=== PATIENT | female | born 1985 | race Caucasian/White ===

== ENCOUNTER 2017-11-24 20:02 | Emergency (ER) | payer SELFPAY ==
[2017-11-24] MEDS ORDERED: NA CHLORIDE 0.9% 1,000 ML ONE (21:26)
[2017-11-24 21:36] LABS: Absolute Neutrophil 9.5 K/uL (1.8-8.0); Basophils % 0.7 % (0-1.3); Eosinophils % 2.2 % (0-4.4); Hematocrit 38.2 % (36.0-45.0); Lymphocytes % 21.7 % (15.3-44.8); MCH 30.2 pg (27.0-35.0); MCV 91.2 fL (80-100); MPV 8.7 fL (7.6-11.3); Monocytes % 6.9 % (3.3-12.3); RBC Red Blood Cell Count 4.18 M/uL (3.86-4.86)
[2017-11-24 21:48] LABS: Urine Blood 1+ (NEG); Urine Glucose NEGATIVE (NEG); Urine Protein NEGATIVE (NEG)
[2017-11-24 21:50] LABS: Bicarbonate 24 mEq/L (21-31); Glucose Level 89 mg/dL (65-120); Potassium 3.4 mEq/L (3.6-5.0); Sodium Level 140 mEq/L (135-145)
[2017-11-24 21:57] LABS: BUN Blood Urea Nitrogen 16 mg/dL (6-20); Glomerular Filtration Rate > 90 mL/min (=/>90); Valproic Acid (Depakene) Level 19.4 ug/ml (50-100)
[2017-11-24 22:17] LABS: Urine Bacteria >50 /HPF (<20); Urine Culture Reflex Order REFLEXED
--- NOTE | 2017-11-24 22:20 | EDPHYS ---
Physician Documentation [facility] Name: Dimple Woodward Age: 32 yrs Sex: Female : 1985 Arrival Date: 11/24/2017 Time: 20:21 Bed 25 Private MD: ED Physician Tru Jaquez HPI: 11/24 22:16 This 32 yrs old Female presents to ER via EMS with complaints of Seizure. gs 22:16 The patient presents after having a single isolated seizure. Character of seizure(s): gs Motor activity: generalized. Seizure onset: just prior to arrival. Context: the seizure(s) was witnessed, by family, occurred at home. Seizure Hx: Last seizure: The patient's last seizure was approximately 2 week(s) ago. Associated injury: The patient did not suffer any apparent associated injury. The patient has experienced similar episodes in the past, a few times. 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 - Social history:: Smoking status: Patient/guardian denies using tobacco, but has a distant history of tobacco abuse. ROS: 22:16 All other systems are negative. gs Exam: 22:16 Head/Face: Normocephalic, atraumatic. Eyes: Pupils equal round and reactive to light, gs extra-ocular motions intact. Lids and lashes normal. Conjunctiva and sclera are non-icteric and not injected. Cornea within normal limits. Periorbital areas with no swelling, redness, or edema. ENT: Nares patent. No nasal discharge, no septal abnormalities noted. Tympanic membranes are normal and external auditory canals are clear. Oropharynx with no redness, swelling, or masses, exudates, or evidence of obstruction, uvula midline. Mucous membranes moist. Neck: Trachea midline, no thyromegaly or masses palpated, and no cervical lymphadenopathy. Supple, full range of motion without nuchal rigidity, or vertebral point tenderness. No Meningismus. Chest/axilla: Normal chest wall appearance and motion. Nontender with no deformity. No lesions are appreciated. Cardiovascular: Regular rate and rhythm with a normal S1 and S2. No gallops, murmurs, or rubs. Normal PMI, no JVD. No pulse deficits. Respiratory: Lungs have equal breath sounds bilaterally, clear to auscultation and percussion. No rales, rhonchi or wheezes noted. No increased work of breathing, no retractions or nasal flaring. Abdomen/GI: Soft, non-tender, with normal bowel sounds. No distension or tympany. No guarding or rebound. No evidence of tenderness throughout. Back: No spinal tenderness. No costovertebral tenderness. Full range of motion. Skin: Warm, dry with normal turgor. Normal color with no rashes, no lesions, and no evidence of cellulitis. MS/ Extremity: Pulses equal, no cyanosis. Neurovascular intact. Full, normal range of motion. Neuro: Awake and alert, GCS 15, oriented to person, place, time, and situation. Cranial nerves II-XII grossly intact. Motor strength 5/5 in all extremities. Sensory grossly intact. Cerebellar exam normal. Normal gait. 22:16 Constitutional: The patient appears alert, awake. Vital Signs: 20:14 BP 96 / 74; Pulse 96; Resp 18; Pulse Ox 100% on R/A; dh3 20:24 BP 96 / 74; Pulse 105; Resp 15; Pulse Ox 99% on R/A; kr2 21:23 BP 95 / 60; Pulse 77; Resp 22; Pulse Ox 100% on R/A; dh3 22:46 BP 102 / 58; Pulse 78; Resp 16; Pulse Ox 99% on R/A; kr2 MDM: 20:31 Patient medically screened. 22:16 Differential diagnosis: seizure, sub therapeutic vpa level. Data reviewed: vital signs, nurses notes. Response to treatment: the patient's symptoms have markedly improved after treatment, and as a result, I will discharge patient. 11/24 20:39 Order name: CBC with Diff 11/24 20:39 Order name: BMP 11/24 20:39 Order name: Depakote 11/24 20:40 Order name: Urine Drug Screen 11/24 21:36 Order name: Urine Microscopic Only dh3 11/24 21:40 Order name: Urine Dipstick--Ancillary (enter results) mt 11/24 21:40 Order name: Urine --Ancillary (enter results) ar 11/24 21:41 Order name: CBC with Automated Diff; Complete Time: 22:11 EDMS 11/24 21:48 Order name: Urine --Ancillary; Complete Time: 22:11 EDMS 11/24 21:48 Order name: Urine Dipstick-Ancillary; Complete Time: 22:11 EDMS 11/24 21:51 Order name: Basic Metabolic Panel; Complete Time: 22:11 EDMS 11/24 21:57 Order name: Valproic Acid (Depakene) Level; Complete Time: 22:11 EDNY 11/24 22:17 Order name: Urine Microscopic Only EDNY 11/24 22:35 Order name: Urine Drug Screen EDMS Administered Medications: 21:00 Drug: NS 0.9% 1000 ml Route: IV; Rate: 1 bolus; Site: right antecubital; kr2 22:22 Follow up: Response: No adverse reaction; IV Status: Completed infusion kr2 22:29 Drug: Depakene 500 mg Route: PO; kr2 22:29 Follow up: Response: Medication administered at discharge. kr2 Disposition: 11/24/17 22:19 Discharged to Home. Impression: Epilepsy and recurrent seizures, Cystitis. - Condition is Stable. - Discharge Instructions: Seizure, Adult, Urinary Tract Infection. - Prescriptions for Macrobid 100 mg Oral Capsule - take 1 capsule by ORAL route every 12 hours for 5 days; 10 capsule. - Medication Reconciliation Form, Thank You Letter, Antibiotic Education, Prescription Opioid Use form. - Follow up: Victor Manuel Rousseau MD; When: 2 - 3 days; Reason: Re-evaluation by your physician. - Notes: increase depakote to 500 tid Signatures: Dispatcher [employer] EDMS Tru Jaquez MD MD gs Reaves, Karey, RN RN kr2
--- NOTE | 2017-11-24 22:20 | ER ---
Nurse's Notes [facility] Name: Dimple Woodward Age: 32 yrs Sex: Female : 1985 Arrival Date: 11/24/2017 Time: 20:21 Bed 25 Private MD: Diagnosis: Epilepsy and recurrent seizures;Cystitis Presentation: 11/24 20:21 Presenting complaint: EMS states: we were called out due to reports of seizures, 2 kr2 seizures witnessed by EMS. Patient does have a history of drug abuse, is 91 days clean and wants to make sure she does not receive narcotics. Blood pressure 118/74, pulse 81, resp 20, O2 99% on room air. Transition of care: patient was not received from another setting of care. Onset of symptoms was November 24, 2017. Care prior to arrival: Medication(s) given: Ativan 2mg IM. 20:21 Method Of Arrival: EMS: [facility] kr2 20:21 Acuity: ROGER 3 kr2 Triage Assessment: 20:21 General: Appears in no apparent distress. comfortable, unkempt, Behavior is calm, kr2 cooperative, appropriate for age. Pain: Denies pain. EENT: Nares are clear Oral mucosa is moist. Neuro: Level of Consciousness is awake, alert, obeys commands, Oriented to person, place, time, situation, Appropriate for age. Cardiovascular: Capillary refill < 3 seconds in bilateral fingers Patient's skin is warm and dry. Respiratory: Airway is patent Respiratory effort is even, unlabored, Respiratory pattern is regular, symmetrical. GI: Abdomen is flat, non-distended. : Urine is clear. Derm: Skin is intact, is healthy with good turgor, Skin is pink, warm \T\ dry. Musculoskeletal: Circulation, motion, and sensation intact. 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 - Social history:: Smoking status: Patient/guardian denies using tobacco, but has a distant history of tobacco abuse. Screenin:30 Abuse screen: Denies threats or abuse. Denies injuries from another. Nutritional kr2 screening: No deficits noted. Tuberculosis screening: No symptoms or risk factors identified. Fall Risk Secondary diagnosis (15 points) seizures. Assessment: 20:30 Reassessment: see triage assessment. kr2 21:30 Reassessment: Patient appears in no apparent distress at this time. Patient and/or kr2 family updated on plan of care and expected duration. Pain level reassessed. Patient is alert, oriented x 3, equal unlabored respirations, skin warm/dry/pink. Patient denies pain at this time. 22:30 Reassessment: No changes from previously documented assessment. kr2 Vital Signs: 20:14 BP 96 / 74; Pulse 96; Resp 18; Pulse Ox 100% on R/A; dh3 20:24 BP 96 / 74; Pulse 105; Resp 15; Pulse Ox 99% on R/A; kr2 21:23 BP 95 / 60; Pulse 77; Resp 22; Pulse Ox 100% on R/A; dh3 22:46 BP 102 / 58; Pulse 78; Resp 16; Pulse Ox 99% on R/A; kr2 ED Course: 20:21 Patient arrived in ED. kr2 20:21 Arm band placed on. kr2 20:22 Tru Jaquez MD is Attending Physician. gs 20:24 Triage completed. kr2 20:45 Inserted saline lock: 22 gauge in right antecubital area, using aseptic technique. kr2 ,using aseptic technique. performed by Myrna Talbot RN Blood collected. 21:36 Urine collected: clean catch specimen, cloudy. dh3 22:04 Elke Worthington, EDGARDO is Primary Nurse. kr2 22:18 Victor Manuel Rousseau MD is Referral Physician. gs 22:37 Patient has correct armband on for positive identification. Bed in low position. Call kr2 light in reach. Side rails up X2. Seizure precautions initiated. school bus monitor on. Pulse ox on. NIBP on. Noise minimized. Warm blanket given. Head of bed elevated. 22:38 No provider procedures requiring assistance completed. IV discontinued, intact, kr2 bleeding controlled, No redness/swelling at site. Pressure dressing applied. Administered Medications: 21:00 Drug: NS 0.9% 1000 ml Route: IV; Rate: 1 bolus; Site: right antecubital; kr2 22:22 Follow up: Response: No adverse reaction; IV Status: Completed infusion kr2 22:29 Drug: Depakene 500 mg Route: PO; kr2 22:29 Follow up: Response: Medication administered at discharge. kr2 Outcome: 22:19 Discharge ordered by . 22:38 Discharged to home via wheelchair, with family. kr2 22:38 Condition: stable 22:38 Discharge instructions given to patient, family, Instructed on discharge instructions, follow up and referral plans. medication usage, Demonstrated understanding of instructions, follow-up care, medications, Prescriptions given X 1. 22:47 Patient left the ED. kr2 Signatures: Scarlet Christianson 3 Tru Jaquez MD MD Elke Worthington, RN RN kr2
[2017-11-24 22:34] LABS: Barbiturates NEGATIVE; Benzodiazepines NEGATIVE; Cocaine NEGATIVE; METHAMPHETAM NEGATIVE; Opiates NEGATIVE; Phencyclidine NEGATIVE; THC Cannibis NEGATIVE
[2017-11-24] MEDS ORDERED: DIVALPROEX DR 250 MG TAB PO ONE (22:43)
== END 2017-11-24 22:47 | disposition home or self-care (01) ==
LOC: ER 20:02
DX: N30.90 Cystitis, unspecified without hematuria (principal); F31.9 Bipolar disorder, unspecified; F41.9 Anxiety disorder, unspecified; Z88.5 Allergy status to narcotic agent
CPT/HCPCS: 36415; 80048; 80164; 80307; 81003; 81015; 81025; 85025; 87086; 87088; 96360; 99284; J7030

== ENCOUNTER 2018-01-10 01:31 | Emergency (ER) | payer SELFPAY ==
[2018-01-10] MEDS ORDERED: CLINDAMYCIN HCL 150 MG CAP ONE (01:48)
[2018-01-10] MEDS ORDERED: IBUPROFEN 400 MG TAB ONE (01:48)
--- NOTE | 2018-01-10 02:01 | ER ---
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 Transition of care: ak1 patient was not received from another setting of care. Onset of symptoms was January 06, 2018. Initial Sepsis Screen: Does the patient meet any 2 criteria? No. Patient's initial sepsis screen is negative. Does the patient have a suspected source of infection? No. Patient's initial sepsis screen is negative. Care prior to arrival: None. 01:44 Method Of Arrival: Ambulatory ak1 01:44 Acuity: ROGER 4 ak1 Triage Assessment: 01:46 General: Appears uncomfortable, Behavior is cooperative. Pain: Complains of pain in ak1 upper right central Incisor (#8). EENT: Poor dentition noted. Dental caries noted in upper right central Incisor (#8) Reports pain in upper right central Incisor (#8). Neuro: No deficits noted. Cardiovascular: No deficits noted. Cardiovascular: No deficits noted. Respiratory: No deficits noted. GI: No signs and/or symptoms were reported involving the gastrointestinal system. : No signs and/or symptoms were reported regarding the genitourinary system. Derm: No signs and/or symptoms reported regarding the dermatologic system. Musculoskeletal: No signs and/or symptoms reported regarding the musculoskeletal system. 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 - Social history:: Smoking status: Patient uses tobacco products, smokes one-half pack cigarettes per day. Screenin:48 Abuse screen: Denies threats or abuse. Denies injuries from another. Nutritional ak1 screening: No deficits noted. Tuberculosis screening: No symptoms or risk factors identified. Fall Risk None identified. Assessment: 01:48 Reassessment: Patient appears in no apparent distress at this time. No changes from ak1 previously documented assessment. Patient is alert, oriented x 3, equal unlabored respirations, skin warm/dry/pink. no change from triage assessment. see triage assessment. Vital Signs: 01:46 BP 128 / 88; Pulse 88; Resp 18; Temp 98.1; Pulse Ox 99% on R/A; Weight 59.87 kg (R); ak1 Height 5 ft. 4 in. (162.56 cm) (R); Pain 10/10; 01:46 Body Mass Index 22.66 (59.87 kg, 162.56 cm) ak1 ED Course: 01:36 Patient arrived in ED. al2 01:40 [facility] snw 01:40 Tru Jaquez MD is Attending Physician. snw 01:44 Triage completed. ak1 01:46 Arm band placed on Patient placed in an exam room, Patient notified of wait time. ak1 01:48 Patient has correct armband on for positive identification. Bed in low position. Call ak1 light in reach. Side rails up X 1. Adult w/ patient. Pulse ox on. NIBP on. 01:48 No provider procedures requiring assistance completed. Patient did not have IV access ak1 during this emergency room visit. 02:00 Erlinda Galindo, RN is Primary Nurse. ak1 Administered Medications: 01:50 Drug: Clindamycin 300 mg Route: PO; mb3 01:53 Follow up: Response: No adverse reaction mb3 01:50 Drug: Motrin 400 mg Route: PO; mb3 01:53 Follow up: Response: No adverse reaction mb3 Outcome: 01:43 Discharge ordered by . snw 01:49 Discharged to home ambulatory, with family. ak1 01:49 Condition: good 01:49 Discharge instructions given to patient, Instructed on discharge instructions, follow up and referral plans. no drinking with medication, no driving heavy equipment, medication usage, safe sex practices, control, Demonstrated understanding of instructions, follow-up care, medications, Prescriptions given X 2. 02:01 Patient left the ED. ak1 Signatures: Jane Brooks, PUMP SERVICER-C PUMP SERVICER-Csnw Erlinda Galindo, RN RN ak1 Zeina Asif Mark, RN RN mb3
--- NOTE | 2018-01-10 02:01 | EDPHYS ---
Physician Documentation [facility] Name: Dmiple Woodward Age: 32 yrs Sex: Female : 1985 Arrival Date: 01/10/2018 Time: 01:36 Bed 18 Private MD: ED Physician Tru Jaquez HPI: 01/10 01:45 This 32 yrs old Female presents to ER via Ambulatory with complaints of snw Toothache. 01:45 The patient presents with pain, swelling. The problem is located in the upper right snw central Incisor (#8). Onset: The symptoms/episode began/occurred suddenly, 3 day(s) ago, and became worse. Duration: The symptoms are continuous. Associated signs and symptoms: The patient has no apparent associated signs or symptoms. Severity of symptoms: At their worst the symptoms were mild, moderate. It is unknown whether or not the patient has had similar symptoms in the past. It is unknown whether or not the patient has recently seen a physician. Sees [facility]. 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 - Social history:: Smoking status: Patient uses tobacco products, smokes one-half pack cigarettes per day. ROS: 01:45 Constitutional: Negative for fever, chills, and weight loss, Eyes: Negative for injury, snw pain, redness, and discharge, Neck: Negative for injury, pain, and swelling, Cardiovascular: Negative for chest pain, palpitations, and edema, Respiratory: Negative for shortness of breath, cough, wheezing, and pleuritic chest pain, Abdomen/GI: Negative for abdominal pain, nausea, vomiting, diarrhea, and constipation, Back: Negative for injury and pain, : Negative for injury, bleeding, discharge, and swelling, MS/Extremity: Negative for injury and deformity, Skin: Negative for injury, rash, and discoloration, Neuro: Negative for headache, weakness, numbness, tingling, and seizure. :45 ENT: Positive for Gum pain Teeth pain Exam: :44 Constitutional: This is a well developed, well nourished patient who is awake, alert, snw and in no acute distress. Head/Face: Normocephalic, atraumatic. Eyes: Pupils equal round and reactive to light, extra-ocular motions intact. Lids and lashes normal. Conjunctiva and sclera are non-icteric and not injected. Cornea within normal limits. Periorbital areas with no swelling, redness, or edema. Neck: Trachea midline, no thyromegaly or masses palpated, and no cervical lymphadenopathy. Supple, full range of motion without nuchal rigidity, or vertebral point tenderness. No Meningismus. Chest/axilla: Normal chest wall appearance and motion. Nontender with no deformity. No lesions are appreciated. Cardiovascular: Regular rate and rhythm with a normal S1 and S2. No gallops, murmurs, or rubs. Normal PMI, no JVD. No pulse deficits. Respiratory: Lungs have equal breath sounds bilaterally, clear to auscultation and percussion. No rales, rhonchi or wheezes noted. No increased work of breathing, no retractions or nasal flaring. Abdomen/GI: Soft, non-tender, with normal bowel sounds. No distension or tympany. No guarding or rebound. No evidence of tenderness throughout. Back: No spinal tenderness. No costovertebral tenderness. Full range of motion. Skin: Warm, dry with normal turgor. Normal color with no rashes, no lesions, and no evidence of cellulitis. MS/ Extremity: Pulses equal, no cyanosis. Neurovascular intact. Full, normal range of motion. Neuro: Awake and alert, GCS 15, oriented to person, place, time, and situation. Cranial nerves II-XII grossly intact. Motor strength 5/5 in all extremities. Sensory grossly intact. Cerebellar exam normal. Normal gait. :44 ENT: External ear(s): are unremarkable, Ear canal(s): are normal, TM's: are normal, Nose: is normal, Mouth: is normal, Posterior pharynx: is normal, Dental exam: pain, that is moderate, specifically in the upper right central Incisor (#8). Vital Signs: 01:46 BP 128 / 88; Pulse 88; Resp 18; Temp 98.1; Pulse Ox 99% on R/A; Weight 59.87 kg (R); ak1 Height 5 ft. 4 in. (162.56 cm) (R); Pain 10/10; 01:46 Body Mass Index 22.66 (59.87 kg, 162.56 cm) ak1 MDM: 01:40 Patient medically screened. snw 01:47 Data reviewed: vital signs, nurses notes. Data interpreted: Pulse oximetry:. snw 01:48 Counseling: I had a detailed discussion with the patient and/or guardian regarding: the snw historical points, exam findings, and any diagnostic results supporting the discharge/admit diagnosis, the presence of at least one elevated blood pressure reading (>120/80) during this emergency department visit, the need for outpatient follow up, to return to the emergency department if symptoms worsen or persist or if there are any questions or concerns that arise at home. Counseling: I had a detailed discussion with the patient and/or guardian regarding: smoking cessation. Special discussion: I have referred the patient to see his PCP for further evaluation of high blood pressure. Based on the history and exam findings, there is no indication for further emergent testing or inpatient evaluation. I discussed with the patient/guardian the need to see a dentist for further evaluation of the symptoms. I discussed with the patient/guardian the need to see the primary care provider for further evaluation of the symptoms. Administered Medications: 01:50 Drug: Clindamycin 300 mg Route: PO; mb3 01:53 Follow up: Response: No adverse reaction mb3 01:50 Drug: Motrin 400 mg Route: PO; mb3 01:53 Follow up: Response: No adverse reaction mb3 Disposition: 01/10/18 01:43 Discharged to Home. Impression: Dental caries. - Condition is Stable. - Discharge Instructions: Dental Abscess, Dental Pain, Smoking Cessation, Smoking Hazards, Diet and Dental Disease. - Prescriptions for Clindamycin HCl 300 mg Oral Capsule - take 1 capsule by ORAL route every 6 hours for 10 days; 40 capsule. Diclofenac Sodium 75 mg Oral Tablet Sustained Release - take 1 tablet by ORAL route 2 times per day; 30 tablet. - Medication Reconciliation Form, Thank You Letter, Antibiotic Education, Prescription Opioid Use form. - Follow up: Private Physician; When: 1 - 2 days; Reason: Recheck today's complaints, Continuance of care, Re-evaluation by your physician. Follow up: Emergency Department; When: As needed; Reason: Worsening of condition. Addendum: 01/13/2018 19:50 Co-signature as Attending Physician, Tru Jaquez MD. g s Signatures: Jane Brooks, HIDE INSPECTOR AND SORTER-C HIDE INSPECTOR AND SORTER-Csnw Erlinda Galindo, RN RN ak1 Tru Jaquez MD MD Bryan Howell RN RN mb3 Corrections: (The following items were deleted from the chart) 01/10 02:01 01:43 01/10/2018 01:43 Discharged to Home. Impression: Dental caries. Condition is ak1 Stable. Forms are Medication Reconciliation Form, Thank You Letter, Antibiotic Education, Prescription Opioid Use. Follow up: Private Physician; When: 1 - 2 days; Reason: Recheck today's complaints, Continuance of care, Re-evaluation by your physician. Follow up: Emergency Department; When: As needed; Reason: Worsening of condition. snw
== END 2018-01-10 02:01 | disposition home or self-care (01) ==
LOC: ER 01:31
DX: K02.9 Dental caries, unspecified (principal); F17.210 Nicotine dependence, cigarettes, uncomplicated; F31.9 Bipolar disorder, unspecified; Z88.5 Allergy status to narcotic agent
CPT/HCPCS: 99283